=== PATIENT | male | born 1935 | race Caucasian/White ===

== ENCOUNTER → 2017-11-21 | Outpatient (CLI) | payer OTHER ==
[~2017-11-21] MED LIST: ACET325 PO; ALLO100 PO; ALLO300; ALLO300 PO; AMLO5; Augmentin 875-1 EACH PO; BACL10; BACL10 PO; CEPH500; CHOL10002 PO; Cephalexin250 MG/5 M PO; Cleocin HCl150 MG PO; Col-Rite100 MG PO; DIGO.125 PO; DIGO.25; DOCU100 PO; DOXA2; FISH1000 PO; GABA300 PO; GLIP10; GLIP10 PO; INSDET100 SC; INSDET100 SQ; Keflex500 MG PO; LEVCAR2510 PO; LISI20; LISI20 PO; LOPE2C PO; MELA3 PO; METF500; METF500 PO; METF500C PO; METO25 PO; MIRT15 PO; MODA200 PO; MULVITMIND PO; Novolog Fl100 UNIT/1 SQ; PIOG15; POLY500 PO; PROM25 PO; QUIN5 PO; SIMV10; SIMV10 PO; SIMV40 PO; TAMS.4ER PO; VENL25; WARF1; WARF2; WARF2 PO; WARF2.5 PO; WARF3 PO
[2017-11-21 09:24] LABS: Source, Urine Voided
[2017-11-21 10:22] LABS: Bilirubin, Urine Neg (Neg); Blood, Urine 4+ (Neg); Glucose Qualitative, Urine Neg (Neg); Ketones, Urine Neg (Neg); Leukocyte Esterase, Urine 1+ (Neg); Nitrite, Urine Neg (Neg); Protein, Urine 1+ (Neg); Specific Gravity, Urine 1.015 (1.003-1.022); Urobilinogen, Urine NORM (Normal)
[2017-11-21 10:43] LABS: Appearance, Urine Clear (Clear); Color, Urine Yellow (P-Yellow)
[2017-11-21 10:50] LABS: Bacteria Few /hpf; Squamous Epithelial Cells Few /hpf (Few); White Blood Cells, Urine 0-2 /hpf (0-5)
== END | disposition home or self-care (01) ==
LOC: LAB SHORT 06:00 → LAB 06:00
PROVIDERS: Internal Medicine
DX: R41.82 Altered mental status, unspecified (principal)
CPT/HCPCS: 81001

== ENCOUNTER 2017-11-27 12:13 | Emergency (ER) | payer OTHER ==
[~2017-11-27] VITALS: Ht 167.6 cm; Wt 72.6 kg
[2017-11-27] MEDS ORDERED: PRAHYD1AE TOP (13:33)
[2017-11-28] MEDS ORDERED: INSULANPEN SC (10:31)
[2017-11-28] MEDS ORDERED: Novolog Fl100 UNIT/1 SC (10:32)
[2017-11-28] MEDS ORDERED: Glucagon Emergen1 MG SC (10:38)
[2017-11-28] MEDS ORDERED: PROAIR RESPICL90 MCG INH (10:39)
== END 2017-11-27 13:53 | disposition home or self-care (01) ==
LOC: ER 12:13
DX: K64.8 Other hemorrhoids (principal); K64.4 Residual hemorrhoidal skin tags; E11.9 Type 2 diabetes mellitus without complications; I48.91 Unspecified atrial fibrillation; Z79.899 Other long term (current) drug therapy; Z79.01 Long term (current) use of anticoagulants
CPT/HCPCS: 99283

== ENCOUNTER 2017-11-28 00:57 | Day surgery (SDC) | payer OTHER ==
[~2017-11-28 00:57] MED LIST changes: +PRAHYD1AE TOP
[2017-11-28] MEDS ORDERED: INSULANPEN SC (10:31)
[2017-11-28] MEDS ORDERED: Novolog Fl100 UNIT/1 SC (10:32)
[2017-11-28] MEDS ORDERED: Glucagon Emergen1 MG SC (10:38)
[2017-11-28] MEDS ORDERED: PROAIR RESPICL90 MCG INH (10:39)
== END 2017-11-28 10:18 | disposition home or self-care (01) ==
LOC: ATC 00:57
DX: R33.9 Retention of urine, unspecified (principal); I48.2 Chronic atrial fibrillation; Z79.01 Long term (current) use of anticoagulants; G47.33 Obstructive sleep apnea (adult) (pediatric); L02.92 Furuncle, unspecified; E11.9 Type 2 diabetes mellitus without complications; Z79.4 Long term (current) use of insulin; Z85.46 Personal history of malignant neoplasm of prostate; I69.854 Hemiplegia and hemiparesis following other cerebrovascular disease affecting left non-dominant side; D69.6 Thrombocytopenia, unspecified; M24.542 Contracture, left hand; F32.9 Major depressive disorder, single episode, unspecified
CPT/HCPCS: 51798

== ENCOUNTER 2017-12-23 16:26 | Emergency (ER) | payer OTHER ==
[~2017-12-23] VITALS: Ht 165.1 cm; Wt 63.5 kg
[~2017-12-23 16:26] MED LIST changes: +CLOT10 PO; +FINA5 PO; +FURO20 PO; +Fibercon625 MG PO; +Glucagon Emergen1 MG SC; +Hair, Skin & N1 EACH PO; +INSULANPEN SC; +Lopressor 25 mg25 MG PO; +Novolog Fl100 UNIT/1 SC; +PROAIR RESPICL90 MCG INH; +QUET25 PO; +SPIR50 PO
[2017-12-23 17:06] LABS: Source, Urine Catheter
[2017-12-23 17:10] LABS: Appearance, Urine Cloudy (Clear); Blood, Urine 5+ (Neg); Color, Urine Brown (P-Yellow); Glucose Qualitative, Urine Neg (Neg); Ketones, Urine 1+ (Neg); Leukocyte Esterase, Urine 2+ (Neg); Nitrite, Urine Pos (Neg); Protein, Urine 3+ (Neg); Specific Gravity, Urine 1.025 (1.003-1.022); Urobilinogen, Urine 1+ (Normal)
[2017-12-23 17:10] LABS: BASOPHILS ABSOLUTE AUTO 0.03 K/mm3 (0.00-0.23); BASOPHILS PERCENT AUTO 0 % (0-2); EOSINOPHILS ABSOLUTE AUTO 0.15 K/mm3 (0.00-0.68); EOSINOPHILS PERCENT AUTO 2 % (0-6); Hematocrit 44.4 % (37.0-53.0); IMMATURE GRAN ABSOLUTE AUTO 0.02 K/mm3 (0.00-0.10); IMMATURE GRAN PERCENT AUTO 0 % (0-1); LYMPHOCYTES ABSOLUTE AUTO 0.99 K/mm3 (0.84-5.20); LYMPHOCYTES PERCENT AUTO 13 % (21-46); MONOCYTES ABSOLUTE AUTO 0.81 K/mm3 (0.16-1.47); MONOCYTES PERCENT AUTO 10 % (4-13); Mean Corpuscular HGB 33.6 pg (26.0-34.0); Mean Corpuscular HGB Conc 33.8 g/dL (31.5-36.5); Mean Corpuscular Volume 100 fL (80-100); Mean Platelet Volume 11.2 fL (9.1-12.4); NEUTROPHILS ABSOLUTE AUTO 5.77 K/mm3 (1.96-9.15); NEUTROPHILS PERCENT AUTO 74 % (41-73); Platelet Count 165 K/mm3 (150-400); RDW Coefficient Variation 13.2 % (11.7-14.2); Red Blood Cell Count 4.46 M/mm3 (4.30-5.90); White Blood Cell Count 7.77 K/mm3 (4.00-11.30)
[2017-12-23 17:18] LABS: Bilirubin, Urine 1+ (Neg)
[2017-12-23 17:22] LABS: Bacteria Mod /hpf; Red Blood Cells, Urine TNTC /hpf (0-2); Squamous Epithelial Cells Rare /hpf (Few)
[2017-12-23 17:25] LABS: Bun/Creatinine Ratio 19.1 (12.0-20.0); Calcium, Blood 9.7 mg/dL (8.5-10.1); Creatinine, Blood 1.62 mg/dL (0.60-1.20); Potassium, Blood 4.6 mmol/L (3.5-5.5)
[2017-12-23 17:28] LABS: Prothrombin Time Results 110.7 Sec (9.7-11.5)
[2017-12-23 17:29] LABS: International Normalized Ratio 12.39
[2017-12-23] MEDS ORDERED: CEFP200 PO (17:33)
== END 2017-12-23 18:40 | disposition home or self-care (01) ==
LOC: ER 16:26
PROVIDERS: Emergency Medicine
DX: D68.32 Hemorrhagic disorder due to extrinsic circulating anticoagulants (principal); T45.515A Adverse effect of anticoagulants, initial encounter; N39.0 Urinary tract infection, site not specified; I48.2 Chronic atrial fibrillation; E11.9 Type 2 diabetes mellitus without complications; Z86.73 Personal history of transient ischemic attack (TIA), and cerebral infarction without residual deficits; Z79.01 Long term (current) use of anticoagulants
CPT/HCPCS: 36415; 80048; 81001; 85025; 85610; 87077; 87086; 87186; 96365; 99283-25; J3430